=== PATIENT | male | born 1950 | race Caucasian/White ===

== ENCOUNTER → 2020-02-17 | Outpatient (CLI) | payer OTHER ==
[~2020-02-17] MED LIST: ASPI81CH PO; B-1100 M1 PO; FOLI1 PO; FURO40 PO; LACT10SY PO; Lovastatin20 MG PO; METO25 PO; OMEP20ER PO; Prinivil10 MG PO; SPIR50 PO
== END | disposition home or self-care (01) ==
LOC: LAB SHORT 16:48 → LAB 16:48
DX: Z20.828 Contact with and (suspected) exposure to other viral communicable diseases (principal)
CPT/HCPCS: U0003

== ENCOUNTER 2020-03-31 12:28 | Emergency (ER) | payer OTHER ==
[~2020-03-31] VITALS: Ht 185.4 cm; Wt 103.0 kg
[~2020-03-31 12:28] MED LIST changes: -ASPI81CH PO; +Aspirin EC81 MG PO
[2020-03-31 13:03] LABS: BASOPHILS ABSOLUTE AUTO 0.03 K/mm3 (0.00-0.23); BASOPHILS PERCENT AUTO 1 % (0-2); EOSINOPHILS ABSOLUTE AUTO 0.07 K/mm3 (0.00-0.68); EOSINOPHILS PERCENT AUTO 1 % (0-6); Hematocrit 40.1 % (37.0-53.0); Hemoglobin 13.3 g/dL (13.5-17.5); IMMATURE GRAN ABSOLUTE AUTO 0.01 K/mm3 (0.00-0.10); IMMATURE GRAN PERCENT AUTO 0 % (0-1); LYMPHOCYTES ABSOLUTE AUTO 1.56 K/mm3 (0.84-5.20); LYMPHOCYTES PERCENT AUTO 30 % (21-46); MONOCYTES ABSOLUTE AUTO 0.41 K/mm3 (0.16-1.47); MONOCYTES PERCENT AUTO 8 % (4-13); Mean Corpuscular HGB 36.3 pg (26.0-34.0); Mean Corpuscular HGB Conc 33.2 g/dL (31.5-36.5); Mean Corpuscular Volume 110 fL (80-100); NEUTROPHILS ABSOLUTE AUTO 3.17 K/mm3 (1.96-9.15); NEUTROPHILS PERCENT AUTO 60 % (41-73); Platelet Count 170 K/mm3 (150-400); RDW Coefficient Variation 13.7 % (11.7-14.2); RDW Standard Deviation 55.4 fL (35.1-46.3); Red Blood Cell Count 3.66 M/mm3 (4.30-5.90); White Blood Cell Count 5.25 K/mm3 (4.00-11.30)
[2020-03-31 13:17] LABS: Alanine Aminotransfer (ALT/SGP 18 U/L (12-78); Albumin, Blood 2.4 g/dL (3.4-5.0); Albumin/Globulin Ratio 0.5 (0.8-1.8); Alk Phos 112 U/L (50-136); Anion Gap 8 mmol/L (6-16); Aspartate Aminotrans (AST/SGOT 42 U/L (12-37); Bilirubin, Total 2.9 mg/dL (0.1-1.0); Blood Urea Nitrogen 17 mg/dL (8-24); Bun/Creatinine Ratio 17.3 (12.0-20.0); CO2, Blood 24 mmol/L (21-32); Calcium, Blood 8.8 mg/dL (8.5-10.1); Chloride, Blood 106 mmol/L (98-108); Creatinine, Blood 0.98 mg/dL (0.60-1.20); Globulin, Blood 4.5 g/dL (2.2-4.0); Glomerular Filtration Rate >60 (60-); Glucose, Blood 112 mg/dL (70-99); Potassium, Blood 4.4 mmol/L (3.5-5.5); Sodium, Blood 138 mmol/L (136-145); Total Protein, Blood 6.9 g/dL (6.4-8.2)
[2020-03-31 13:27] LABS: Ethanol (Alcohol), Blood, Med <3 mg/dL; Magnesium, Blood 2.2 mg/dL (1.6-2.4)
[2020-03-31 13:48] LABS: International Normalized Ratio 1.38; Prothrombin Time Results 14.5 Sec (9.7-11.5)
[2020-03-31 13:48] LABS: Influenza A, PCR Negative (NEGATIVE); Influenza B, PCR Negative (NEGATIVE); Resp Syncytial Virus, PCR Negative (NEGATIVE); SARS-Cov-2 (COVID-19) PCR, MMC Negative (NEGATIVE)
[2020-03-31 15:26] LABS: Automated BF WBC Count 0.068 K/mm3 (0-999); Body Fluid WBC Count 68 /mm3 (0-999)
[2020-03-31 15:37] LABS: Albumin, Body Fluid 0.3 g/dL
[2020-03-31 16:12] LABS: RBC Count, Body Fluid 8 /mm3 (0-0)
[2020-03-31 16:16] LABS: Total Cell Count, Body Fluid 100
[2020-03-31 16:17] LABS: Appearance, Body Fluid Clear (Clear); Color, Body Fluid Yellow (None-Yellow)
== END 2020-03-31 16:52 | disposition home or self-care (01) ==
LOC: ER 12:28
PROVIDERS: Emergency Medicine
DX: K70.31 Alcoholic cirrhosis of liver with ascites (principal); I10 Essential (primary) hypertension; E78.5 Hyperlipidemia, unspecified; Z20.822 Contact with and (suspected) exposure to COVID-19; Z79.899 Other long term (current) drug therapy; Z79.82 Long term (current) use of aspirin
CPT/HCPCS: 0241U; 36415; 49083; 71045; 80053; 82042; 82140; 82947; 83690; 83735; 84443; 85025; 85610; 87070; 87205; 89051; 93005; 93010; 99284-25; G0480

== ENCOUNTER 2020-06-02 00:07 | Day surgery (SDC) | payer OTHER ==
[2020-06-02] MEDS ORDERED: TRAZ50 PO (16:21)
--- NOTE | 2020-06-02 17:20 | NUR ---
TALKED WITH CONCERNING BP MEDS AND CHECKING BP AT HOME.
--- NOTE | 2020-06-02 17:35 | NUR ---
PT DISCHARGED TO ER VIA PTS OWN WHEELCHAIR. ATTEMPTED TO CALL ER CHARGE NURSE AND WAITED FOR 12 MINUTES AND THAN CALL WAS DROPPED.
== END 2020-06-02 17:35 | disposition home or self-care (01) ==
LOC: US 00:07 → ATC 00:07 → EDSTATUS 14:00 → US 14:00 → ATC 17:35
DX: K70.31 Alcoholic cirrhosis of liver with ascites (principal); I10 Essential (primary) hypertension; E78.5 Hyperlipidemia, unspecified; F10.21 Alcohol dependence, in remission; Z85.820 Personal history of malignant melanoma of skin; Z85.46 Personal history of malignant neoplasm of prostate
CPT/HCPCS: 49083; 96365; 96366; P9046

== ENCOUNTER 2020-06-02 17:40 | Emergency (ER) | payer OTHER ==
[~2020-06-02] VITALS: Ht 185.4 cm; Wt 95.2 kg
[~2020-06-02 17:40] MED LIST changes: +TRAZ50 PO
[2020-06-02 18:47] LABS: Albumin, Blood 3.1 g/dL (3.4-5.0); Bilirubin, Total 1.8 mg/dL (0.1-1.0); Bun/Creatinine Ratio 16.9 (12.0-20.0); Calcium, Blood 8.5 mg/dL (8.5-10.1); Creatinine, Blood 1.3 mg/dL (0.60-1.20); Magnesium, Blood 2.3 mg/dL (1.6-2.4); Potassium, Blood 4.7 mmol/L (3.5-5.5); Total Protein, Blood 6.1 g/dL (6.4-8.2)
[2020-06-02 18:48] LABS: International Normalized Ratio 1.49; Prothrombin Time Results 15.6 Sec (9.7-11.5)
[2020-06-02 18:56] LABS: BASOPHILS ABSOLUTE AUTO 0.01 K/mm3 (0.00-0.23); BASOPHILS PERCENT AUTO 0 % (0-2); EOSINOPHILS ABSOLUTE AUTO 0.05 K/mm3 (0.00-0.68); EOSINOPHILS PERCENT AUTO 2 % (0-6); Hematocrit 26.5 % (37.0-53.0); Hemoglobin 9.1 g/dL (13.5-17.5); IMMATURE GRAN ABSOLUTE AUTO 0.01 K/mm3 (0.00-0.10); IMMATURE GRAN PERCENT AUTO 0 % (0-1); LYMPHOCYTES ABSOLUTE AUTO 0.89 K/mm3 (0.84-5.20); LYMPHOCYTES PERCENT AUTO 33 % (21-46); MONOCYTES ABSOLUTE AUTO 0.31 K/mm3 (0.16-1.47); MONOCYTES PERCENT AUTO 12 % (4-13); Mean Corpuscular HGB 36.5 pg (26.0-34.0); Mean Corpuscular HGB Conc 34.3 g/dL (31.5-36.5); Mean Corpuscular Volume 106 fL (80-100); NEUTROPHILS ABSOLUTE AUTO 1.42 K/mm3 (1.96-9.15); NEUTROPHILS PERCENT AUTO 53 % (41-73); Platelet Count 90 K/mm3 (150-400); RDW Coefficient Variation 13.2 % (11.7-14.2); Red Blood Cell Count 2.49 M/mm3 (4.30-5.90); White Blood Cell Count 2.69 K/mm3 (4.00-11.30)
== END 2020-06-02 22:12 | disposition home or self-care (01) ==
LOC: ER 17:40
PROVIDERS: Emergency Medicine
DX: I95.9 Hypotension, unspecified (principal); E87.8 Other disorders of electrolyte and fluid balance, not elsewhere classified; I10 Essential (primary) hypertension; E78.5 Hyperlipidemia, unspecified; Z98.890 Other specified postprocedural states; Z79.82 Long term (current) use of aspirin; Z79.899 Other long term (current) drug therapy
CPT/HCPCS: 80053; 83735; 83880; 85025; 85610; 99283

== ENCOUNTER 2020-07-19 15:46 | Inpatient (IN) | payer OTHER ==
[~2020-07-19] VITALS: Ht 177.8 cm; Wt 74.4 kg
[2020-07-19] MEDS ORDERED: MIDO5 PO (16:48)
[2020-07-19 16:58] LABS: Alanine Aminotransfer (ALT/SGP 26 U/L (12-78); Albumin, Blood 2.6 g/dL (3.4-5.0); Albumin/Globulin Ratio 0.6 (0.8-1.8); Alk Phos 217 U/L (50-136); Anion Gap 9 mmol/L (6-16); Aspartate Aminotrans (AST/SGOT 40 U/L (12-37); Bilirubin, Total 2.7 mg/dL (0.1-1.0); Blood Urea Nitrogen 34 mg/dL (8-24); Bun/Creatinine Ratio 19.1 (12.0-20.0); CO2, Blood 21 mmol/L (21-32); Chloride, Blood 96 mmol/L (98-108); Creatinine, Blood 1.78 mg/dL (0.60-1.20); Globulin, Blood 4.2 g/dL (2.2-4.0); Glomerular Filtration Rate 41 (60-); Glucose, Blood 131 mg/dL (70-99); Potassium, Blood 4.9 mmol/L (3.5-5.5); Sodium, Blood 126 mmol/L (136-145); Total Protein, Blood 6.8 g/dL (6.4-8.2); Troponin I <0.015 ng/mL (0.000-0.040)
[2020-07-19 17:00] LABS: International Normalized Ratio 1.33; Prothrombin Time Results 14.1 Sec (9.7-11.5)
[2020-07-19 17:30] LABS: BASOPHILS ABSOLUTE AUTO 0.01 K/mm3 (0.00-0.23); BASOPHILS PERCENT AUTO 0 % (0-2); EOSINOPHILS ABSOLUTE AUTO 0.04 K/mm3 (0.00-0.68); EOSINOPHILS PERCENT AUTO 1 % (0-6); Hematocrit 32.2 % (37.0-53.0); Hemoglobin 11.6 g/dL (13.5-17.5); IMMATURE GRAN ABSOLUTE AUTO 0.03 K/mm3 (0.00-0.10); IMMATURE GRAN PERCENT AUTO 0 % (0-1); LYMPHOCYTES ABSOLUTE AUTO 1.05 K/mm3 (0.84-5.20); LYMPHOCYTES PERCENT AUTO 14 % (21-46); MONOCYTES ABSOLUTE AUTO 0.68 K/mm3 (0.16-1.47); MONOCYTES PERCENT AUTO 9 % (4-13); Mean Corpuscular Volume 106 fL (80-100); Mean Platelet Volume 9.1 fL (9.1-12.4); NEUTROPHILS ABSOLUTE AUTO 5.56 K/mm3 (1.96-9.15); NEUTROPHILS PERCENT AUTO 76 % (41-73); Platelet Count 216 K/mm3 (150-400); RDW Coefficient Variation 13.8 % (11.7-14.2); RDW Standard Deviation 53.8 fL (35.1-46.3); Red Blood Cell Count 3.05 M/mm3 (4.30-5.90); White Blood Cell Count 7.37 K/mm3 (4.00-11.30)
[2020-07-19] MEDS ORDERED: TRAZ50 PO (18:35)
[2020-07-19] MEDS ORDERED: SPIRONOLACTONE100 M3 PO (18:36)
--- NOTE | 2020-07-19 22:30 | NUR ---
REPORT RECEIVED FROM ASHLEYED RN. PT TRANSPORTED TO MEDICAL FLOOR VIA GURNEY, TRANSFERRED TO BED VIA SLIDE SHEET AND ASSIST OF 3. AT THE BEDSIDE. PT A&O TO SELF, FAMILY. RE-ORIENTED TO LOCATION. NO SIGNS OF ACUTE DISTRESS NOTED. ORIENTED TO ROOM/UNIT. VS TAKEN, WNL; BP'S STABLE AT THIS TIME. CALL LIGHT, POSSESSIONS IN REACH, BED IN LOW POSITION WITH ALARMS ON.
[2020-07-19] MEDS ORDERED: OXYC5 PO (23:21)
[2020-07-20 05:11] LABS: BASOPHILS ABSOLUTE AUTO 0.02 K/mm3 (0.00-0.23); BASOPHILS PERCENT AUTO 0 % (0-2); EOSINOPHILS ABSOLUTE AUTO 0.07 K/mm3 (0.00-0.68); EOSINOPHILS PERCENT AUTO 1 % (0-6); Hematocrit 28.7 % (37.0-53.0); Hemoglobin 10.6 g/dL (13.5-17.5); IMMATURE GRAN ABSOLUTE AUTO 0.02 K/mm3 (0.00-0.10); IMMATURE GRAN PERCENT AUTO 0 % (0-1); LYMPHOCYTES ABSOLUTE AUTO 1.28 K/mm3 (0.84-5.20); LYMPHOCYTES PERCENT AUTO 18 % (21-46); MONOCYTES ABSOLUTE AUTO 0.66 K/mm3 (0.16-1.47); MONOCYTES PERCENT AUTO 9 % (4-13); Mean Corpuscular HGB 39.3 pg (26.0-34.0); Mean Corpuscular HGB Conc 36.9 g/dL (31.5-36.5); Mean Corpuscular Volume 106 fL (80-100); Mean Platelet Volume 8.6 fL (9.1-12.4); NEUTROPHILS ABSOLUTE AUTO 5.11 K/mm3 (1.96-9.15); NEUTROPHILS PERCENT AUTO 71 % (41-73); Platelet Count 183 K/mm3 (150-400); RDW Coefficient Variation 13.6 % (11.7-14.2); RDW Standard Deviation 52.1 fL (35.1-46.3); White Blood Cell Count 7.16 K/mm3 (4.00-11.30)
[2020-07-20 05:35] LABS: Bun/Creatinine Ratio 19.6 (12.0-20.0); Calcium, Blood 8.6 mg/dL (8.5-10.1); Creatinine, Blood 1.58 mg/dL (0.60-1.20); Potassium, Blood 4.7 mmol/L (3.5-5.5)
--- NOTE | 2020-07-20 07:38 | NUR ---
COUNTRY SALES MANAGER SUMMARY PT RESTING QUIETLY, IN NO ACUTE DISTRESS. VS REVIEWED,WNL, BP'S STABLE. NO ACUTE CHANGES IN CONDITION OVERNIGHT, MENTATION APPEARS TO BE IMPROVING, PT INCREASINGLY CONVERSATIONAL WITH STAFF. NO EPISODES OF AGITATION NOTED. SLEPT THROUGH THE NIGHT. PT DENIES PAIN/NEEDS AT THIS TIME. CALL LIGHT, POSSESSIONS IN REACH, BED IN LOW POSITION WITH ALARMS ON. REPORT GIVEN TO DAY RN.
--- NOTE | 2020-07-20 11:34 | NUR ---
Pt resting in bed upon arrival. Pt is A&OX2/3. Pt able to verbalize appropriate place, and a general reason for hospital stay but no specifics such as increased weakness and confusion. Pt unable to verbalize appropriate year or current season. Pt denies pain and dyspnea at this time. Pt states "I have a feeling I'm terminal". Asked Pt to elaborate on this staement but does not. Ended visit to allow Pt to rest. Called and spoke with Pt's spouse Vivienne. Provided update and reviewed plan of care. Discussed completing POLST for Pt and Vivienne is agreeable. Vivienne reports plan to visit Pt at 1400 today during visiting hours and is agreeable for F/U visit. Palliative Care will remain available.
--- NOTE | 2020-07-20 16:32 | NUR ---
F/U visit this afternoon. Pt resting in bed and pleasantly confused. Pt appears mildy anxious. Pt's spouse Vivienne at bedside and Dr Neri arrives to review plan of care. Dr Neri answers questions and provides update. This RN remained behind and assisted with completing POLST. Educated on life sustaining treatments including risk factors and implications of CPR. Educated on each section to complete on POLST. Vivienne completes POLST with Pt's wishes for DNR and Limited Treatment. Gentle brief education given on the importance of routine conversations with PCP and specialist regarding disease process. Discussed developing multiple plans with PCP and specialist as disease progresses. Vivienne expresses appreciation and reports no other concerns at this time. Plan: Will obtain copy of POLST upon MD signature for Pt's EMR and continue with supportive visits. Palliative Care will remain available.
--- NOTE | 2020-07-20 16:54 | NUR ---
BLOOD PRESSURE/ALDACTONE PT'S BLOOD PRESSURE IN THE 90'S SYSTOLICLY. THIS RN TALKED WITH DR. GREENE AND DISCUSSED THAT PT RECEIVED THE MIDODRINE ALREADY AND STILL HAVING LOW BP. DR. GREENE ORDERED FOR THE ALDACTONE TO BE GIVEN WITH THE CURRENT BLOOD PRESSURE. WILL CONTINUE TO MONITOR.
--- NOTE | 2020-07-20 18:37 | NUR ---
SHIFT SUMMARY PT HAS BEEN SLEEPING MOST OF THE SHIFT. PT DOES TRY TO GET UP AT TIMES BUT IS VERY WEAK AND SLOW AT MOVING. PT FLAT AFFECT. NO COMPLAINTS OF PAIN. PT REFUSED LACTULOSE THIS EVENING AND HAS NOT HAD A BM WITH THE TWO DOSES GIVEN THIS SHIFT. NO ACUTE CHANGES AT THIS TIME. CALL LIGHT IN REACH AND BED ALARM ON FOR SAFETY. WILL CONTINUE TO MONITOR AND REPORT TO ONCOMING RN.
[2020-07-21 05:21] LABS: BASOPHILS ABSOLUTE AUTO 0.01 K/mm3 (0.00-0.23); BASOPHILS PERCENT AUTO 0 % (0-2); EOSINOPHILS ABSOLUTE AUTO 0.03 K/mm3 (0.00-0.68); EOSINOPHILS PERCENT AUTO 0 % (0-6); Hematocrit 28.4 % (37.0-53.0); Hemoglobin 10.6 g/dL (13.5-17.5); IMMATURE GRAN ABSOLUTE AUTO 0.02 K/mm3 (0.00-0.10); IMMATURE GRAN PERCENT AUTO 0 % (0-1); LYMPHOCYTES ABSOLUTE AUTO 1.04 K/mm3 (0.84-5.20); LYMPHOCYTES PERCENT AUTO 15 % (21-46); MONOCYTES ABSOLUTE AUTO 0.62 K/mm3 (0.16-1.47); MONOCYTES PERCENT AUTO 9 % (4-13); Mean Corpuscular HGB 40.3 pg (26.0-34.0); Mean Corpuscular HGB Conc 37.3 g/dL (31.5-36.5); Mean Corpuscular Volume 108 fL (80-100); Mean Platelet Volume 8.7 fL (9.1-12.4); NEUTROPHILS ABSOLUTE AUTO 5.27 K/mm3 (1.96-9.15); NEUTROPHILS PERCENT AUTO 75 % (41-73); Platelet Count 176 K/mm3 (150-400); RDW Coefficient Variation 13.7 % (11.7-14.2); RDW Standard Deviation 53.5 fL (35.1-46.3); Red Blood Cell Count 2.63 M/mm3 (4.30-5.90); White Blood Cell Count 6.99 K/mm3 (4.00-11.30)
[2020-07-21 05:57] LABS: Albumin, Blood 2.2 g/dL (3.4-5.0); Albumin/Globulin Ratio 0.6 (0.8-1.8); Bilirubin, Total 2.9 mg/dL (0.1-1.0); Bun/Creatinine Ratio 19.9 (12.0-20.0); Calcium, Blood 8.5 mg/dL (8.5-10.1); Creatinine, Blood 1.56 mg/dL (0.60-1.20); Globulin, Blood 3.9 g/dL (2.2-4.0); Total Protein, Blood 6.1 g/dL (6.4-8.2)
--- NOTE | 2020-07-21 10:32 | NUR ---
Pt resting in bed with his eyes closed. Pt appears comfortable with no S/S of distress at this time. This RN did not disturb Pt at this time. Spoke with Bedside RN Siena and discussed case. Siena reports Pt has been making statement of "why does it matter, I'm terminal anyway". Plan: Will obtain copy of POLST upon MD signature and F/U for supportive visits. Palliative care will remain available.
--- NOTE | 2020-07-21 17:53 | NUR ---
07/21/20 Mental status still not at baseline, plans to take him home when ready but is concerned for his care level. PT OT ordered today. I will try to meet with and patient on saturday to discuss discharge planning and review assessments for dme needs.
--- NOTE | 2020-07-21 18:32 | NUR ---
SHIFT SUMMARY PT HAS BEEN MORE AWAKE TODAY. PT NOT EATING MUCH, POOR APPETITE. PT HAS REFUSED MEALS BUT WAS ABLE TO GET PT TO EAT FRUIT AND ROLL AT DINNER. PT REQUESTED ORANGE JUICE AND DRINKING AT THIS TIME. PT/OT WORKED WITH PT TODAY. NO COMPLAINTS OF PAIN. PT WAS AGREEABLE TO ALL LACTULOSE DOSES THIS SHIFT BUT STILL HAS NOT HAD A BM. PT PASSING GAS. NO ACUTE CHANGES THIS SHIFT. CALL LIGHT IN REACH AND BED ALARM ON FOR SAFETY. WILL REPORT TO ONCOMING RN.
[2020-07-22 05:27] LABS: BASOPHILS ABSOLUTE AUTO 0.01 K/mm3 (0.00-0.23); BASOPHILS PERCENT AUTO 0 % (0-2); EOSINOPHILS ABSOLUTE AUTO 0.04 K/mm3 (0.00-0.68); EOSINOPHILS PERCENT AUTO 1 % (0-6); Hematocrit 29.7 % (37.0-53.0); Hemoglobin 10.7 g/dL (13.5-17.5); IMMATURE GRAN ABSOLUTE AUTO 0.03 K/mm3 (0.00-0.10); IMMATURE GRAN PERCENT AUTO 1 % (0-1); LYMPHOCYTES PERCENT AUTO 19 % (21-46); MONOCYTES ABSOLUTE AUTO 0.72 K/mm3 (0.16-1.47); MONOCYTES PERCENT AUTO 12 % (4-13); Mean Corpuscular HGB 38.2 pg (26.0-34.0); Mean Corpuscular Volume 106 fL (80-100); Mean Platelet Volume 8.7 fL (9.1-12.4); NEUTROPHILS ABSOLUTE AUTO 4.24 K/mm3 (1.96-9.15); NEUTROPHILS PERCENT AUTO 68 % (41-73); Platelet Count 172 K/mm3 (150-400); RDW Coefficient Variation 13.4 % (11.7-14.2); RDW Standard Deviation 52.3 fL (35.1-46.3); White Blood Cell Count 6.24 K/mm3 (4.00-11.30)
[2020-07-22 05:55] LABS: Albumin, Blood 2.2 g/dL (3.4-5.0); Albumin/Globulin Ratio 0.6 (0.8-1.8); Bilirubin, Total 2.8 mg/dL (0.1-1.0); Bun/Creatinine Ratio 21.6 (12.0-20.0); Calcium, Blood 8.3 mg/dL (8.5-10.1); Creatinine, Blood 1.48 mg/dL (0.60-1.20); Globulin, Blood 3.7 g/dL (2.2-4.0); Potassium, Blood 4.4 mmol/L (3.5-5.5); Total Protein, Blood 5.9 g/dL (6.4-8.2)
--- NOTE | 2020-07-22 06:58 | NUR ---
SHIFT SUMMARY NO ACUTE CHANGES THIS SHIFT, A&O TO SELF & FAMILY, ABLE TO FOLLOW DIRECTIONS, SLOW TO RESPOND, 2 ASSIST TO BSC, SLEPT T/O THE NIGHT & SLEEPING AT THIS TIME, CALL LIGHT IN REACH, BED ALARM ACTIVE, WILL CONT TO MONITOR UNTIL REPORT GIVEN TO DAY RN.
--- NOTE | 2020-07-22 14:17 | NUR ---
called dr wright/bloody smear when wipe coccyx and low bp
--- NOTE | 2020-07-22 16:52 | NUR ---
07/22/20 Met with Vivienne, discussed snf insurance coverage, home equipment options, caregiver coverage by insurance (not) he is a 2 person assist, mentation has not improved at this time.No eta for discharge .
--- NOTE | 2020-07-22 17:34 | NUR ---
Made a visit to pt at 1500 today. He had just finished use of pleural drain. He is pleased that the fluid volume is decreasing. He reports his breathing is much better since the drain placement, and with initial 3000cc's out on day 1, 2000cc's on day 3 and 200cc's on day 5, his lungs are not producing near the fluid volume now. He was disappointed to hear his WBC count had again increased, without explanation or infection source/site known, but he states between exercising, watching movies and doing crosswsurespot, he will stay busy and pass the time. We talked about his cats, and he tells me another story about "Dub", the bigger cat at home. He did smile and laugh while talking about him, then smiled and said, "Ouch, too much laughing!" He remains positive while medical team attempts to find out the source of the cancer cells that showed some in the pleural fluid. No further needs at this time. Pt is agreeable to carry on discussion next week, depending on how things are going. I will remain available.
--- NOTE | 2020-07-22 19:28 | NUR ---
sleepy but able to wake and answer questions, concerned about decrease in mentation, information passed to dr along with low bp and high heart rate, rm air, saline locked, declined all medication except for pain medication and iv nausea which he declined but accepted when convinced it would not hurt, bsr shared with noc nurse and pt
[2020-07-22 21:14] LABS: Albumin, Blood 2.2 g/dL (3.4-5.0); Anion Gap 7 mmol/L (6-16); Blood Urea Nitrogen 37 mg/dL (8-24); Bun/Creatinine Ratio 19.6 (12.0-20.0); CO2, Blood 23 mmol/L (21-32); Calcium, Blood 8.4 mg/dL (8.5-10.1); Chloride, Blood 96 mmol/L (98-108); Creatinine, Blood 1.89 mg/dL (0.60-1.20); Glomerular Filtration Rate 38 (60-); Glucose, Blood 104 mg/dL (70-99); Magnesium, Blood 2.8 mg/dL (1.6-2.4); Phosphorus, Blood 3.4 mg/dL (2.5-4.9); Sodium, Blood 126 mmol/L (136-145)
--- NOTE | 2020-07-22 22:06 | NUR ---
CALLED HOSPITALIST INFORMED HOSPITALIST OF HR IN 160'S AND HYPOTENSION THAT HAS BEEN EVIDENT SINCE 1507 HOURS TODAY. TELEMETRY MONITORING ORDERED. CALLED HOSPITALIST AGAIN INFORMED HER OF TELEMETRY RATE & RHYTHM. AFLUTTER @ 156 BPM. FLUID BOLUS ORDERED. CALLED HOSPITALIST AGAIN FOLLOWING FLUID BOLUS TELEMETRY SHOWED TACHY @ 149. BP IS NOW 96/72. ANOTHER FLUID BOLUS ORDERED
--- NOTE | 2020-07-22 23:16 | NUR ---
HOSPITALIST CONTACTED REGARDING PT BLOOD PRESSURE OF 80/47 AT 2246. PROVIDER REQUESTED MANUAL BLOOD PRESSURES BE DONE ON EACH ARM. LEFT ARM OF 76/46 AND RIGHT ARM OF 76/28. HOSPITALIST CALLED WITH THESE RESULTS. HOSPITALIST ORDERED ANOTHER FLUID BOLUS OF 500 ML NS AND REQUESTED ANOTHER SET OF MANUAL BP AFTER BOLUS COMPLETED.
--- NOTE | 2020-07-23 02:04 | NUR ---
TRANSFER NOTE CALLED HOSPITALIST AND HE WAS INFORMED OF PT'S UNRESPONSIVE HYPOTENSION. ORDER GIVEN TO TRANSFER TO ICU. REPORT GIVEN TO BRANDEN ROSA IN ICU. PERSONAL POSSESSIONS WITH PT. PT'S CALLED AND INFORMED. PT TRANSPORTED TO ICU VIA GURNEY.
[2020-07-23 03:17] LABS: BASOPHILS ABSOLUTE AUTO 0.01 K/mm3 (0.00-0.23); BASOPHILS PERCENT AUTO 0 % (0-2); EOSINOPHILS ABSOLUTE AUTO 0.03 K/mm3 (0.00-0.68); EOSINOPHILS PERCENT AUTO 0 % (0-6); Hemoglobin 10.7 g/dL (13.5-17.5); IMMATURE GRAN ABSOLUTE AUTO 0.03 K/mm3 (0.00-0.10); IMMATURE GRAN PERCENT AUTO 0 % (0-1); LYMPHOCYTES ABSOLUTE AUTO 1.16 K/mm3 (0.84-5.20); LYMPHOCYTES PERCENT AUTO 17 % (21-46); MONOCYTES ABSOLUTE AUTO 0.67 K/mm3 (0.16-1.47); MONOCYTES PERCENT AUTO 10 % (4-13); Mean Corpuscular HGB 37.3 pg (26.0-34.0); Mean Corpuscular HGB Conc 35.7 g/dL (31.5-36.5); Mean Corpuscular Volume 105 fL (80-100); Mean Platelet Volume 8.7 fL (9.1-12.4); NEUTROPHILS ABSOLUTE AUTO 4.95 K/mm3 (1.96-9.15); NEUTROPHILS PERCENT AUTO 72 % (41-73); Platelet Count 194 K/mm3 (150-400); RDW Coefficient Variation 13.4 % (11.7-14.2); RDW Standard Deviation 51.6 fL (35.1-46.3); Red Blood Cell Count 2.87 M/mm3 (4.30-5.90); White Blood Cell Count 6.85 K/mm3 (4.00-11.30)
--- NOTE | 2020-07-23 03:32 | NUR ---
ASUMPTION OF CARE: PATIENT TRANSFER TO ICU 0123. PATIENT HYPOTENSIVE, NSR, AND ON ROOM AIR. PATIENT HAS FLAT AFFECT AND IS WITHDRAWN FOR THE MOST PART. PATIENT CONFUSED AT THIS TIME AND REFUSES TO ANSWER MOST ORIENTATION QUESTIONS. USE OF RESTRAINTS EXPLAINED IN THE CASE OF NEEDING TO GET AN ORDER. PATIENT IS NOT PULLING ON LINES/TUBES AT THIS TIME
[2020-07-23 03:35] LABS: Albumin, Blood 2.2 g/dL (3.4-5.0); Albumin/Globulin Ratio 0.6 (0.8-1.8); Bilirubin, Total 2.8 mg/dL (0.1-1.0); Bun/Creatinine Ratio 20.6 (12.0-20.0); Creatinine, Blood 1.75 mg/dL (0.60-1.20); Globulin, Blood 3.8 g/dL (2.2-4.0); Magnesium, Blood 2.8 mg/dL (1.6-2.4); Phosphorus, Blood 3.5 mg/dL (2.5-4.9); Potassium, Blood 5.2 mmol/L (3.5-5.5)
--- NOTE | 2020-07-23 07:23 | NUR ---
ASSUMED CARE RECEIVED REPORT FROM MOE OTERO. PT IS IN BED, AWAKE, ALERT, AND ORIENTED X SELF ONLY. HE IS WITHDRAWN/FLAT, AND NOT RESPONDING TO MOST QUESTIONS, BUT INTERMITTENTLY WILL SPEAK A WORD OR TWO BACK. HE WAS ABLE TO DENY PAIN, AND SAID HE DIDNT KNOW WHEN I ASKED HIM THE YEAR, BUT ALSO STATED HE DIDN'T HAVE A . PT HAS SWB RESTRAINTS SECURED TO BED, HE IS INTERMITTENTLY PULLING ON THEM, AND PULLING AT LEADS AND OTHER CHORDS/LINES. PT IS ON LEVOPHED GTTP AT 5 MCG/MIN AND NS AT 75 ML/HR, GOAL MAP > 65, CURRENTLY AT GOAL. HE IS IN SINUS RHYTHM, RATE 80s. SPO2 98% ON ROOM AIR, WITH NO SIGNS OF RESPIRATORY DISTRESS. BED LOW AND LOCKED.
--- NOTE | 2020-07-23 08:22 | NUR ---
PERIPHERAL IVs BOTH FLUSH WELL, THE IV ON THE UPPER R FOREARM HAS MINISCULE BLOOD RETURN AND THE SITE HAS BRUISING, BUT NO SIGNS OF INFILTRATION/LEAKING. THE IV ON HIS R WRIST/LOWER FA FLUSHES WELL, AND THE SITE IS WNL, LEVOPHED INFUSING AT 3MCG/MIN VIA THIS IV. WILL KEEP FREQUENT VISUALIZATION ON THIS SITE. WILL CONTINUE TO MONITOR.
--- NOTE | 2020-07-23 15:43 | NUR ---
UPDATE-, DR. SMITH, HOSPICE DR. SMITH HAS HAD A DISCUSSION WITH BEATRICE, THE PT's , REGARDING THE PT's PROGNOSIS. THIS RN WAS NOT PRESENT DURING THIS CONVERSATION, BUT IT WAS REPORTED THAT THEY DECIDED ON GOING THE COMFORT CARE AND HOSPICE ROUTE. DUE IT BEING LATER IN THE DAY ON THE WEEKEND, THE HOSPICE REFERRAL WILL BE DONE MOST LIKELY ON SATURDAY. BEATRICE WOULD LIKE FOR US TO CONTINUE TO GIVE LACTULOSE ( LONG IT DOESN'T HAVE TO GO THROUGH AN NG TUBE OR RECTAL TUBE, AND THAT THE PT VOLUNTARILY TAKES THE MEDICINE PO. LEVOPHED HAS BEEN SLOWLY TITRATED DOWN, BUT REMAINS ON AT 3 MCG/MIN FOR TIME BEING TO ENSURE PERFUSION. CURRENTLY PT HAS A CPOT OF 0, AND CONTINUES TO DENY PAIN. IS CONTENT WITH HOW HER LOOKS (IN TERMS OF COMFORT IN THE BED). PT's SISTER AND ARE AT BEDSIDE, AND HAVE BEEN UPDATED AND ARE UNDERSTANDING PTs CURRENT SITUATION. WILL CONTINUE TO MONITOR.
--- NOTE | 2020-07-23 19:15 | NUR ---
UPDATE DR. SMITH DOES NOT WANT LACTULOSE TO BE GIVEN IT WILL BE MORE OF A BOTHER FOR THE PATIENT THAN IT WOULD BE A BENEFIT, ALONG WITH MIDODRINE. LEVOPHED WAS TURNED OFF. PT REMAINS WITHDRAWN AND FLAT, NOT ANSWERING (YES AND NO) QUESTIONS READILY HE WAS THIS AFTERNOON. PT SLEEPING AND HAS CPOT OF 0. PT DID DENY PAIN AND NEEDING TO VOID. AT BEDSIDE, STATING SHE FELT THAT HE WAS COMFORTABLE. BED LOW AND LOCKED.
--- NOTE | 2020-07-23 19:15 | NUR ---
ASSUMPTION OF CARE RECEIVED REPORT FROM MICKEY ROSA. ASSUMED CARE OF PATIENT. PATIENT IN BED WITH EYES CLOSED, TO BEDSIDE. PATIENT SLOW TO RESPOND BUT ANSWERS YES AND NO AND STATED [facility] WHEN ASKED IF HE KNEW WHERE HE WAS. PATIENT COOPERATIVE WITH CARE, WEAK BUT ABLE TO ASSIST WITH TURNING FOR ATTEND CHANGE. PATIENT DENIES PAIN OR OTHER DISCOMFORTS. ORIENTED PATIENT TO CALL LIGHT WHILE IS OUT OF ROOM. WILL CONTINUE TO MONITOR.
--- NOTE | 2020-07-24 06:01 | NUR ---
SHIFT SUMMARY PATIENT TURNED CHARTED. IS CURRENTLY A/O. CLEAR SPEECH, RESPONDS TO QUESTIONS APPROPRIATELY. HAS DENIED PAIN OR DISCOMFORTS THROUGH SHIFT. REQUESTED WARM BLANKETS AND ORANGE JUICE WHICH WERE PROVIDED. PATIENT TOLERATING PO INTAKE WELL, NO DIFFICULTIES WITH LIQUIDS NOTED. HAS BEEN AT BEDSIDE THROUGH SHIFT. INCONTINENT OF URINE TWICE, ATTENDS IN PLACE. DENIES NEED TO USE URINAL WITH EVERY OFFER. PATIENT AND CURRENTLY AWAKE IN ROOM. WILL REPORT TO ONCOMING RN.
--- NOTE | 2020-07-24 10:16 | NUR ---
Spoke with Bedside MOE Almanzar and MOE Doe. Discussed case and concerns. Pt accepted lactulose just prior to medication being D/C and became more alert. Pt able to interact more this AM. Request made for lactulose be continued. Pt resting in bed upon arrival. Pt is A&OX3/4. Spouse Vivinene at bedside. Pt denies pain and dyspnea at this time. Discussed the option to have lactulose available. Discussed pros and cons. Discussed the option of lactulose being offered with the ability to refuse medication. Pt and spouse are agreeable with being offered lactulose. Engaged in therapeutic discussion regarding hospice agencies to choose from. Family chooses the hospice agency available the soonest between [facility] and [facility]. Offered therapeutic listening and answered questions. Called and spoke with Dr Degroot. Placed order for Lactulose 30mls PO BID per V/O from Dr Degroot. Placed Hospice referral with family's choice of hospice agency. Palliative Care will remain available.
--- NOTE | 2020-07-24 10:46 | NUR ---
CARE ASSUMED ASSESSMENTS COMPLETED. PT ALERT, ORIENTED TO FAMILY AND SURROUNDINGS, COOPERATIVE WITH CARE. ANSWERS QUESTIONS SLOWLY BUT APPROPRIATELY WITH SHORT ANSWERS, DOES NOT MAKE EYE CONTACT UNLESS PROMPTED. BREEN, IS WEAK BUT ATTEMPTS TO ASSIST WITH REPOSITIONING IN BED. LS CLEAR, DIM IN BASES, SPO2 90'S ON RA, BP STABLE, HRR. ABD DISTENDED, PT DENIES PAIN ON PALPATION, DENIES NAUSEA. BT PRESENT, JAUNDICE NOTED IN SKIN. USE OF LACTULOSE FOR COMFORT DISCUSSED WITH PALLIATIVE CARE RN, NEW ORDERS FROM . PT TOLERATING PO WITHOUT DIFFICULTY, THOUGH APPETITE IS POOR. GOOD FLUID INTAKE. ATTEMPTED TO USE BEDPAN FOR STOOL WITHOUT SUCCESS, ATTENDS CHANGED FOR URINE INCONTINENCE. PT REPOSITIONED, IS SLEEPING AT THIS TIME. SISTER AT BEDSIDE.
[2020-07-24] MEDS ORDERED: Ativan1 MG PO (16:44)
[2020-07-24] MEDS ORDERED: ATROPINE SULFATE2 M5 SL (16:44)
[2020-07-24] MEDS ORDERED: ONDA4ODT MM (16:45)
[2020-07-24] MEDS ORDERED: MIRALAX17 GM PO (16:45)
[2020-07-24] MEDS ORDERED: TRANSDERM-SCOP1 EAC1 TD (16:46)
[2020-07-24] MEDS ORDERED: PROM25 PO (16:46)
[2020-07-24] MEDS ORDERED: MORP20L SL (16:48)
--- NOTE | 2020-07-24 18:03 | NUR ---
END OF SHIFT MENTAL STATUS SEEMS TO BE SLIGHTLY IMPROVED THIS EVENING, PT ABLE TO SPEAK IN SHORT SENTENCES AND VERBALIZE NEEDS/WISHES, MAKES EYE CONTACT OCCASIONALLY. PT DENIED PAIN/DISCOMFORT T/O SHIFT, WAS CALM AND PLEASANT, NO PRN MEDS REQUIRED. REFUSED MANY REPOSITIONS, AGREED TO BEDBATH. ATTENDS CHANGED X3 FOR URINE, PT HAS GOOD FLUID INTAKE, THOUGH NUTRITION IS POOR. DRANK ENSURE AND TOOK LIQUID MEDS WITHOUT DIFFICULTY. SKIN REMAINS JAUNDICED, NO BM THIS SHIFT. NO CHANGES TO ABD. FAMILY IN TO SEE PT TODAY, PT ABLE TO STAY AWAKE FOR VISITS BUT NAPPED OFTEN T/O DAY. VERBALIZES WISHES TO GO HOME, PLAN FOR DISCHARGE WITH HOSPICE SOON ARRANGEMENTS ARE MADE. REMAINS AT BEDSIDE.
--- NOTE | 2020-07-25 04:37 | NUR ---
SPEECH PATHOLOGY TEACHER SUMMARY PT RESTING COMFORTABLY IN BED FOR ENTIRE SHIFT DENYING ANY PAIN OR NAUSEA. LACTULOSE AND MIRALAX GIVEN PER EMAR. PT BOOSTED IN BED THROUGH OUT THE NIGHT BUT REFUSED REPOSITIONING HE LIKE TO LIE ON HIS BACK. PT SHOWED NO S/S OF DISTRESS AND VS TAKEN AT START OF SHIFT TO ENSURE O2 SAT AND HR. AT BEDSIDE ALL NIGHT. WCTM.
--- NOTE | 2020-07-25 15:32 | NUR ---
[facility] Comfort Care visit. Lynn at the bedside. Pt moving in bed, wide awake. He appears anxious and restless but no nonverbal indicators of pain noted other than extreme restless ness. is trying to settle him and states it is very hard to watch his unease and restlessness. She reports that he was sideways in bed at one point and she was able to coax him back around. She verbalized that she felt the trazadone increased his agitation. This was passed on to RN and we case conferenced re: rxs available and plan of care. RN to try ativan for anxiety and agitation per eMar. encouraged to take rest breaks and I offered food and fluids. states everyone has been wonderful and has tended to her needs as well as Estrada's. Planned with to visit tomorrow again. AUSTIN DUFFY working on d/c plan with hospice being arranged, planned for tomorrow at this time per RN.
--- NOTE | 2020-07-25 17:44 | NUR ---
SUMMARY: ADMIT 07/20/20 07/25/20 DR SMITH STARTED COMFORT CARE THIS LAST WEEKEND. I S/W BEATRICE ABOUT HOSPICE SERVICES. [facility]. [facility] WILL HAVE BED DELIVERED 07/26/20, HOSPICE TO START 07/27/20. UPDATED DR POWELL THAT DISCHARGE IS PLANNED FOR SATURDAY.
--- NOTE | 2020-07-25 17:52 | NUR ---
Spiritual care note: Pt slept peacefully while I met with spouse, Estefani, at bedside. Provided theraputic listening and gentle anticipatory bereavement group therapy counselor to good effect. Estefani has faced numerous losses and is tearful/overwhelmed. She and I met when her dad was here 5 years ago, and we have a good rapport. Prayer provided for a peaceful transition. Deja hopes to get him home tomorrow and tells me she has plenty of support from family/friends. She hopes he passes quickly. I will remain available.
--- NOTE | 2020-07-25 18:46 | NUR ---
SHIFT SUMMARY PT IS ALERT, ORIENTED TO SELF, FAMILY AT BEDSIDE. COMFORT CARE ORDERS IN PLACE. PT RESTLESS AT TIMES, PRN ATIVAN GIVEN, SEE EMAR. FAMILY REPORTS PT RESPONDED WELL TO ATIVAN. REPOSTIONED PT PER FAMILY AND PT PREFERENCES TODAY. PT INCONTINENT. PICC TO LEFT UPPER ARM. PT HAS MINIMAL APPETITE, FAMILY ASSISTING IN FEEDING. FAMILY REMAINS AT BEDSIDE. HOSPICE COORDINATED WITH PT AND FAMILY TODAY AND PLANS TO DISCHARGE TOMORROW AFTERNOON. DISCHARGE PRESCRIPTIONS GIVEN TO FAMILY BY CUFF RUNNER, COPIES ON CHART.
--- NOTE | 2020-07-25 19:28 | NUR ---
REPORT RECEIVED, CARE ASSUMED. PT IN BED, Shauna RAMOS MAE. FAMILY AT BEDSIDE. PT COMFORT CARE AT THIS TIME. CONTINUE CARE.
--- NOTE | 2020-07-25 22:10 | NUR ---
REPORT CALLED TO MEDICAL FLOOR MOE WALLACE. PT AND FAMILY MOVED VIA BED ON Dimas ROSA.
--- NOTE | 2020-07-25 23:05 | NUR ---
0828 PT ARRIVES TO FLOOR W/ IN NO DISTRESS.
--- NOTE | 2020-07-26 04:46 | NUR ---
SUMMARY PT COMFORTABLE AND RELAXED. PT PRESENT. NO NEW ISSUE NOTED. CALL LIGHT IN REACH AND BED ALARM ON.
--- NOTE | 2020-07-26 09:19 | NUR ---
PT APPEARS TO BE SLEEPING THE PTS IS AT THE BEDSIDE, APPEARS TO BE COMFORTABLE AT THIS TIME
--- NOTE | 2020-07-26 09:24 | NUR ---
APPEARS TO BE COMFORTABLE AT THIS TIME
--- NOTE | 2020-07-26 10:00 | NUR ---
PT APPEARS TO BE COMFORTABLE AT THIS TIME, FAMILY REPORTS NO NEEDS AT THIS TIME WILL CONTINUE TO MONITOR AND ASSESS FOR CHANGES
--- NOTE | 2020-07-26 13:28 | NUR ---
PRE MEDICATED THE PT FOR ERVIN CATHETER INSERT FOR PAIN, OBSERVED AND ASSISTED SN MARYLIN WITH INSERTION OF ERVIN CATH, PTS IS AT THE BEDSIDE
--- NOTE | 2020-07-26 16:07 | NUR ---
PT APPEARS TO BE COMFORTABLE AT THIS TIME, FAMILY GONE AT THIS TIME, THE PT IS AWAITING DISCHARGE AT THIS TIME
--- NOTE | 2020-07-26 16:38 | NUR ---
PT DISCHARGED TO HOSPICE CARE, PT TRANSFERED VIA GURNEY ACCOMPANIED BY [facility], THE PT WAS SEMI COMATOSE AT THE TIME OF TRANSFER APPEARED TO BE COMFORTABLE
--- NOTE | 2020-07-26 16:41 | NUR ---
SUMMARY: admit 07/20//07/13 Discharged home by Transport. Met with Vivienne prior to discharge, expecting a call from [facility] for [facility]ara. Vivienne was comfortable providing medications before Hospice arrives. Mickey has not been awake today. [facility] to start services on Saturday. jessie
== END 2020-07-26 16:28 | disposition hospice, home (50) | DRG 433 ==
LOC: ER 15:46 → MEDS 15:47 → ICUW 07-23 00:58 → MEDS 07-25 22:28
PROVIDERS: Family Medicine; Nurse Practitioner Acute Care; Physician Assistant; ADMIT Internal Medicine
PROC: 02HV33Z Insertion of Infusion Device into Superior Vena Cava, Percutaneous Approach (ICD-10-PCS; principal; 2020-07-23)
PROC: 4A02X4A Measurement of Cardiac Electrical Activity, Guidance, External Approach (ICD-10-PCS; 2020-07-23)
DX: K70.31 Alcoholic cirrhosis of liver with ascites (principal); K76.6 Portal hypertension; E87.1 Hypo-osmolality and hyponatremia; N17.9 Acute kidney failure, unspecified; Z66 Do not resuscitate; K70.40 Alcoholic hepatic failure without coma; I95.9 Hypotension, unspecified; Z51.5 Encounter for palliative care; I10 Essential (primary) hypertension; Z85.46 Personal history of malignant neoplasm of prostate; Z98.890 Other specified postprocedural states; Z79.899 Other long term (current) drug therapy; Z79.82 Long term (current) use of aspirin; I95.89 Other hypotension; E78.00 Pure hypercholesterolemia, unspecified; F10.20 Alcohol dependence, uncomplicated
CPT/HCPCS: 36415; 36569; 70450; 71046; 80048; 80053; 80069; 82140; 83690; 83735; 84100; 84484; 85025; 85610; 93005; 93010; 97162; 97165; 97530; 97535; 99285-25; A9270; C1751; G0378; J2060; J2405; J7030; J7040; J7060